=== PATIENT | female | born 1980 | race Caucasian/White ===

== ENCOUNTER 2020-06-15 07:23 | Day surgery (SDC) | payer OTHER, SELFPAY ==
--- NOTE | 2020-05-08 08:39 | HP.PCM_ITS ---
- Problem List (1) Menorrhagia Status: Acute History and Physical Date of Admission: 05/11/20 DATE OF SERVICE: April 28, 2020 ? PROBLEM:?menorrhagia, dysmenorrhea ? DIAGNOSIS:?menorrhagia, dysmenorrhea ? SUBJECTIVE:?Regular cycles with 4-7 days of heavy flow. Changing both a pad and tampon q <?1 hr on heavy days. Tubal ligation for control. Has tried ocp, patch, nuvaring in past. Declines all medical options. Declines ablation. ? EMB FINAL DIAGNOSIS A: Endometrial, biopsy - Proliferative endometrium with chronic endometritis and focal breakdown changes ? Component Latest Ref Rng & Units 01/14/2020 02/23/2020 WBC 3.70 - 11.00 k/uL 11.60 (H) ? RBC 3.90 - 5.20 m/uL 5.04 ? Hemoglobin 11.5 - 15.5 g/dL 13.9 ? Hematocrit 36.0 - 46.0 % 41.9 ? MCV 80.0 - 100.0 fL 83.1 ? MCH 26.0 - 34.0 pG 27.6 ? MCHC 30.5 - 36.0 g/dL 33.2 ? RDW-CV 11.5 - 15.0 % 14.6 ? Platelet Count 150 - 400 k/uL 394 ? MPV 9.0 - 12.7 fL 10.1 ? Absolute nRBCo <0.01 k/uL <0.01 ? , Urine neg - pos ? neg Quality Check yes/no ? Yes TSH 0.270 - 4.200 uU/mL 1.340 ? Pap normal and HPV negative 01/14/2020 ? Pelvic US: Impression Normal appearing retroverted uterus that measures 92 mm x 51 mm x 74 mm. The central endometrium complex measures 14.3 mm in combined thickness- heterogenous appearance. No abnormal blood flow to suggest a polyp or focal endometrial pathology is observed within the endometrial complex. The contour of the endometrial cavity was normal on 3-D imaging. Right ovary visualized and appears normal. left ovary not visualized. No adnexal masses were observed. There is free fluid visualized around the right adnexa. Recommendations Follow up as clinically indicated. ? PAST SURGICAL HISTORY:? PAST SURGICAL HISTORYExpand by Default PAST SURGICAL HISTORY Procedure Laterality Date ? APPENDECTOMY ? ? ? 27 YEARS OLD ? SECTION HX ? ? ? TWO DAUGHTERS x2 ? LAPAROSCOPIC CYSTECTOMY ? ? ? dermoid cysts on both left and right ovary ? TUBAL LIGATION HX ? ? ? PAST MEDICAL HISTORY:? PAST MEDICAL HISTORYExpand by Default PAST MEDICAL HISTORY Diagnosis Date ? Dermoid ? ? on ovaries- had reconstruction surgery ? SOCIAL HISTORY:? SOCIAL HISTORYExpand by Default Social History ? Tobacco Use ? Smoking status: Current Every Day Smoker ? ? Packs/day: 0.50 ? ? Years: 14.00 ? ? Pack years: 7.00 ? ? Types: Cigarettes ? ? Start date: 08/22/2002 ? Smokeless tobacco: Never Used Substance Use Topics ? Alcohol use: Never ? Drug use: No ? Allergies: No Known Allergies ? No current outpatient medications on file prior to visit. No current facility-administered medications on file prior to visit. ? ? ? OBJECTIVE: ? VITALS:? BP 110/64 ? Pulse 82 ? Resp 16 ? Ht 5' 4 (1.626 m) ? Wt 188 lb 3.2 oz (85.4 kg) ? LMP 12/31/2019 ? BMI 32.30 kg/m? ? HEENT: ?Normocephalic, atraumatic, Mucus membranes moist without lesions. ? NECK: ???Soft and Supple. ?No adenopathy , thyromegaly or bruits. ? SKIN: No lesions. ? CHEST: Clear to auscultation. ?No wheezes or rales. ?Good air exchange. ? HEART: Regular rate and rhythm ?No S3 or S4. ?No gallops or rubs. ? BACK: Nontender with no CVA tenderness. ? ABDOMEN: Soft, non-tender, non-distended, no masses, no hepatosplenomegaly. ? LOWER EXTREMITIES: There was no pitting edema, no palpable cords and no skin changes. ? ? ? ASSESSMENT:?menorrhagia, dysmenorrhea ? PLAN:?Discussed scarring and adhesive disease from prior surgeries possibly making the surgery too difficult to complete, or need for laparotomy. Discussed a hysterectomy is not gaurenteed to improve her pain, and could worsen her pain. Recommended medical management and patient declines. She requests a hysterectomy. Discussed TLH, BS, cystoscopy.?The rationale for the proposed surgery was discussed in addition to risks, benefits, and alternatives. ?General pre- and post-operative care was reviewed. ?Questions were answered. ?After discussion, the patient indicated a desire to proceed with the planned surgery. ? Ashlyn Cantu,?DO
[2020-05-09 13:40] LABS: Hematocrit 39.8 % (37-47); Hemoglobin 12.6 g/dL (12.0-15.0); Mean Corp Hgb Conc 31.7 g/dL (32-36); Mean Corpuscular Volume 85.4 fL (81-99); Mean Platelet Vol. 11.2 fl (6.2-12.0); Platelet Count 373 K/mm3 (150-450); RBC Distribution Width CV 14.2 % (11.6-14.6); Red Blood Count 4.66 M/mm3 (4.2-5.4)
[2020-05-09 13:45] LABS: Magnesium 2.1 mg/dL (1.6-2.6)
[2020-06-15] VITALS (8 sets, daily range): BP systolic 130–149; BP diastolic 72–94; PULSE 73–97; RESP 16–18; TEMP 36.4–36.8; O2SAT 95–100; BMI 33.0
[2020-06-15 07:58] LABS: Internal QC Validated? YES +Cl - CLEAR BKGD; Pregnancy, Urine Negative Negative
[2020-06-15] MEDS: Lactated Ringers 1,000 ML 40 ML IV ×3 (08:01→15:01)
[2020-06-15] MEDS: Scopolamine 1mg/72hr Patch 1 PATCH TD (08:15)
[2020-06-15] MEDS: Phenazopyridine 95 MG Tablet 190 MG PO (08:15)
[2020-06-15] MEDS: Celecoxib 200 MG Capsule 400 MG PO (08:16)
[2020-06-15] MEDS: Gabapentin 600 MG Tablet PO (08:16)
[2020-06-15] MEDS: Acetaminophen 500 MG Tablet 1000 MG PO (08:16)
[2020-06-15] MEDS: Enoxaparin 40 MG/0.4 ML Syringe SC (08:19)
[2020-06-15] MEDS: dexAMETHasone 10 MG/ML Vial 8 MG IV (08:22)
--- NOTE | 2020-06-15 08:29 | DCINST_ITS ---
- Discharge Diagnoses Current Active Problems: Current Active and Chronic Problems Menorrhagia (Acute) You will use the following diet at home:: Regular Your food should be the consistency of: Regular Discharge Activity: May Not Drive - until more than 24 hours after surgery, May Shower - 24 hours after surgery May resume sexual activity in: 6-8 weeks - No intercourse, tampons, hot tubs, tub baths, swimming pools until your 6 week post op visit Weight Bearing Status: Weight bearing as tolerated Lifting Restrictions: Nothing heavier than 10-15 lbs for 6 weeks Call your doctor if your incision/area has: Sudden Increased Bleeding, Increased Pain/ Swelling, Increased Redness, Foul Smelling Discharge, Swelling at the incision site Call your doctor if you observe: Fever of 101 or Higher, Change in Color, Inability to urinate, Inability to have a bowel movement, Using more than one pad per hour, Shortness of breath, Dizziness, Fainting spells, Swelling in the ankles, Chest pain, Increased palpitations (irregular heartbeat), Calf discomfort, Uncontrolled pain Suture Line Care: Avoid Pulling/Pushing, Avoid Pinching/Bending Cleanse incision/area with: Soap & Water Allergies/Adverse Reactions: Allergies No Known Allergies Allergy (Verified 06/15/20 08:06) Medications to take at Discharge Acetaminophen [Tylenol Extra Strength] 500 - 1,000 mg PO Q6H PRN PRN 05/04/20 Primary Care Physician: MAXINE LYNN [Other] Test Results: Test results from this visit will be discussed in further detail at your follow- up appointment, if applicable. Please Follow Up With: Ashlyn Cantu DO When: 1 week Please Follow Up With: Monika Milton MD When: 6 weeks
--- NOTE | 2020-06-15 08:38 | OP.PCM_ITS ---
Problem List (1) Menorrhagia Status: Acute (2) Dysmenorrhea Status: Acute Report of Operation Date of Procedure: 06/15/20 Pre-Operative Diagnosis: Menorrhagia, dysmenorrhea Post-Operative Diagnosis: Menorrhagia, dysmenorrhea Surgery/Procedure Performed:: TLH, cysto Description of Surgical Findings:: Enlarged appearing uterus. Bowel adhesions noted to the left adnexa. Bilateral adnexa were adhered to the pelvic sidewalls. Bilateral fallopian tubes adhered to the bilateral ovaries. Moderate bladder adhesions to the uterus. trial judge: Monika Milton - She assisted with prepping and draping the patient. She assisted with the entire hysterectomy from start to finish. She assisted with closure of the port sites and vaginal cuff. Type of Anesthesia:: General Special Medications: None Specimen's removed: Uterus, cervix Drains: Cyr Estimated Blood Loss (mL): 100 Fluids Replaced: 1400 Description of Procedure: Start time 0908 Stop time 1132 The patient is a 40-year-old with menorrhagia and dysmenorrhea. Her pelvic ultrasound showed heterogenous appearing endometrium and was otherwise normal. The endometrial biopsy was benign in the office. Her Pap smear was normal and HPV test was negative. She had tried control pills, vaginal ring, and a control patch in the past without control of her menorrhagia and dy smenorrhea. She declined other medical management options. She declined an ablation. She desired to proceed with a hysterectomy. Consent was signed after discussion of risks and benefits. The patient was prepped and draped in the dorsal lithotomy position using yellowfin stirrups. Beginning from below, a Cyr catheter was placed under sterile conditions and left in situ for the case. A weighted speculum was placed in the vagina and with the help of a right angle retractor the cervix was visualized and grasped with a single-tooth tenaculum on the anterior lip. The cervix was dilated using Hegar dilators. The ELIZABETH uterine manipulator was placed after the uterus was sounded to 8 cm. The weighted speculum and tenaculum were removed. Gloves were changed and attention was turned to the abdominal abdominal portion of the case. Local was used for infiltration of all port sites. Beginning in the subumbilical area the skin was first infiltrated with the bupivacaine solution. A 10 mm incision was made through the skin. The fascia was grasped with Kochers. The fascia was incised with the scalpel. The fascia was tagged with 2-0 Vicryl. The peritoneum was entered bluntly. The Mcdonald port was placed into the peritoneal cavity. The peritoneal cavity was insufflated with CO2 gas to maximum pressure of 20 mmHg. Examination of the peritoneal cavity revealed no signs of an injury from entry. The uterus was noted to be very retroverted, and the uterine manipulator was not placed into the fundus of the uterus. At this point of the procedure the hair or beauty salon assistant went down below and removed the uterine manipulator. The cervix was serially dilated and the uterus was sounded to 10 cm. The ELIZABETH manipulator was placed to the fundus of the uterus. Gloves were changed and the hair or beauty salon assistant returned to the abdominal portion of the case. The patient was then placed in steep Trendelenburg and two 5 mm trochars were placed, one on the left and one on the right in standard technique. All the trochars were placed under direct visualization with no damage to underlying structures. The uterus was upheld from below revealing an enlarged appearing uterus. There were significant adhesions noted of the left and right adnexa. The left and right adnexa were adhered to the pelvic sidewall. The left and right fallopian tubes were unable to be identified completely. Bowel was adhe red to the left adnexa and left pelvic sidewall. Beginning on the left side the left round ligament was dissected, and the anterior leaflet was dissected to start the bladder flap. The same was performed on the right. The bladder was dissected free from the lower anterior uterine segment. The left utero-ovarian ligament was serially clamped, cauterized, transected. The same was performed on the right to ligate the right utero-ovarian ligament. Tissue was skeletonized, and the uterine arteries were bilaterally clamped, cauterized, and ligated. The pedicles were checked and noted to be hemostatic. At the level of the cup of the uterine manipulator the vaginal vault was incised circumferentially with a monopolar hook. The uterus and cervix were delivered through the vagina and sent to pathology for review. Attention was then turned to the vaginal portion of the case. The posterior vaginal cuff was made hemostatic with Vicryl. The vaginal vault was then closed with Vicryl suture in interrupted sutures. The cuff was noted to be hemostatic. A cystoscopy was performed noting a normal appearing bladder and good jets from the bilateral ureters. Gloves were changed and attention was then turned to abdominal portion of the case. The abdomen was insufflated again, and the cuff and pedicles were inspected and noted to be hemostatic. The pelvis was irrigated and hemostasis was again noted. The ports were removed and the abdomen was exsufflated. The fascia of the 10 mm incision was closed with Vicryl in a running fashion. The skin was closed with Monocryl and Dermabond. All instruments were removed from the vagina. All sponge, instrument, and sharps were counted and corrected for. The patient was taken to the recovery room in stable condition. Grafts/Implants Used: None - Complications None - Admit VTE Documentation VTE Present on Admission: No VTE Mechan Device Prophylaxis: SCD's VTE Pharm Prophylaxis ordered?: No
[2020-06-15 08:40] LABS: Bedside Glucose 62 mg/dL (70-110)
[2020-06-15] MEDS: Cefazolin 2 GM in 0.9% Normal Saline 100 ML IV (08:41)
--- NOTE | 2020-06-15 09:00 | HYST_PTH ---
PATIENT: DIVINA MELO [place] [facility] [id number] AGE/SX: 40/F ROOM: RE06/15/[address]: Dr. Ashlyn Cantu, : 1980 BED: DIS: 06/15/2020 SPEC #: [id number] RECD: 06/15/20 13:29 STATUS: JANAK KHUSHBU #: [id number] PÉREZ: 06/15/20 09:[address]: Ashlyn Cantu DEPT: SURGICAL PATHOLOGY RECD BY: Jacinto Seaman Tissues: Uterus, NOS Procedures: Surgery Specimen Level V HEADER OPERATION: ERAS, total laparoscopic hysterectomy, cystoscopy PRE-OP DIAGNOSIS: Menorrhagia, dysmenorrhea TISSUE SUBMITTED: Cervix, uterus MICROSCOPIC DIAGNOSIS Cervix, uterus, hysterectomy: Cervix - mild chronic cystic cervicitis. Endometrium - secretory endometrium. Myometrium - no pathologic diagnosis. THAO:gilma 06/19/2020 MICROSCOPIC DESCRIPTION Slides are reviewed. GROSS DESCRIPTION Received in fixative is one container labeled with the patient's name and designated uterus. The specimen consists of a uterus with attached cervix without fallopian tubes or ovaries, measuring 9.8 x 8.5 x 5 cm and weighing 132 gm. The ectocervix is unremarkable. The cervical os is oval in contour. The endocervical canal measures 3.5 cm in length and is grossly unremarkable. The triangular endometrial cavity measures 3.6 x 3.5 cm. The reddish-servin endometrium measures up to 0.2 cm in thickness. The myometrium measures 2.5 cm in thickness without any mass lesions. [facility] sections are submitted in six cassettes as follows: 1 - anterior cervix, 2 - posterior cervix, 3 & 4 - anterior uterine wall, 5 & 6 - posterior uterine wall. / AM:gilma 06/16/20 TC:5 CPT: 85602
[2020-06-15] MEDS: Bupivacaine Mpf 0.5% 30 ML VIAL (09:07)
[2020-06-15] MEDS: Ondansetron 4 MG/2 ML Vial IM (11:30)
[2020-06-15] MEDS: oxyCODONE 5 MG Tablet PO (13:37)
== END 2020-06-15 15:30 | disposition home or self-care (01) ==
LOC: SDC 07:23 → AC 07:24
PROVIDERS: Anesthesiology; Referring Provider Obstetrics & Gynecology; Visit Provider Obstetrics & Gynecology
PROC: 0UT94ZZ Resection of Uterus, Percutaneous Endoscopic Approach (ICD-10-PCS; CPT 52000; principal; 2020-06-15 08:45)
DX: N94.6 Dysmenorrhea, unspecified (principal); N72 Inflammatory disease of cervix uteri; N92.0 Excessive and frequent menstruation with regular cycle; F17.210 Nicotine dependence, cigarettes, uncomplicated; K66.0 Peritoneal adhesions (postprocedural) (postinfection)
CPT/HCPCS: 52000; 58570; 36415; 81025; 82962; 83735; 85027; 86850; 86900; 86901; 87426; 88307; C9803; J7120; J2405